=== PATIENT | female | born 1990 | race Caucasian/White ===

== ENCOUNTER 2018-06-23 21:33 | Emergency (ER) | payer OTHER ==
--- NOTE | 2018-06-23 21:58 | EDPHY ---
H & P Stated Complaint: chest tighness and back pain since 1830 worse w/movement cough x 3 weeks Time Seen by Provider: 06/23/18 22:04 HPI/ROS: HPI CHIEF COMPLAINT: Chest and back pain worse with movement. HISTORY OF PRESENT ILLNESS: Patient is a 28-year-old female, she arrives to the emergency room with 3-4 hours of chest pain and back pain. She describes an achy sensation is predominantly the right side of her chest and back. It is worse when she moves. Especially when she brings her arms into her chest she complains of worsening pain. Also worse when she takes deep breath in. She denies sharp pain, denies abdominal pain, denies nausea vomiting, denies neck or jaw pain, she has never had this before. She was standing and making dinner at home when this happened. She does additionally reports that she has been sick with a cold over the past few weeks with cough. Of note the patient is 65% O2 sat at triage was made in error. Past Medical History: Denies significant medical history except for anxiety Past Surgical History: Social History: Denies drugs alcohol tobacco. Family History: Noncontributory ROS REVIEW OF SYSTEMS: 10 Systems were reviewed and negative with the exception of the elements mentioned in the history of present illness. Exam Constitutional triage nursing summary reviewed, vital signs reviewed, awake/ alert. Eyes normal conjunctivae and sclera, EOMI, PERRLA. HENT normal inspection, atraumatic, moist mucus membranes, no epistaxis, neck supple/ no meningismus, no raccoon eyes. Respiratory clear to auscultation bilaterally, normal breath sounds, no respiratory distress, no wheezing. Cardiovascular chest wall: Mild tender palpation right anterior chest wall, rate normal, regular rhythm, no murmur, no edema, distal pulses normal. Gastrointestinal soft, non-tender, no rebound, no guarding, normal bowel sounds, no distension, no pulsatile mass. Genitourinary no CVA tenderness. Musculoskeletal no midline vertebral tenderness, full range of motion, no calf swelling, no tenderness of extremities, no meningismus, good pulses, neurovascularly intact. Skin pink, warm, & dry, no rash, skin atraumatic. Neurologic awake, alert and oriented x 3, AAOx3, moves all 4 extremities equally, motor intact, sensory intact, CN II-XII intact, normal cerebellar, normal vision, normal speech. Psychiatric normal mood/affect. Heme/Lymph/Immune no lymphadenopathy. Differential Diagnosis: Differential diagnosis includes but is not limited to: ACS, atypical chest pain, pneumothorax, pneumonia, pulmonary embolism, aortic dissection, congestive heart failure, tumor, musculoskeletal pain, esophageal pain, GERD, peptic ulcer disease, pancreatitis Medical Decision Making: Plan for this patient IV establishment, EKG, chest x- ray, basic labs, D-dimer gentle fluids, re-evaluate. Re-evaluation: EKG interpretation by me on record in [facility] system. Impression time of EKG 2216, sinus rhythm rate of 58 no signs of acute ischemia. No ST elevation. Point care troponin 0.07. Patient's initial troponin came back slightly high but not positive. She had a repeat troponin that is 0.00 Additionally she had a repeat EKG time 2:00 a.m. Sinus rhythm rate of 85, without signs of acute ischemia. Patient re-evaluated this time 2:24 a.m. Resting comfortably without any chest pain. States she feels much better after IV Toradol. She had 2 troponins over 4 hr. Initial troponin was 0.07 the repeat troponin was 0.00 Patient had a repeat EKG time 2:00 a.m. Sinus rhythm rate of 85 no signs of acute ischemia. I believe her chest pain is most likely musculoskeletal given the great improvement with Toradol and negative D-dimer 2-troponins 2 nonischemic EKGs. I do feel comfortable allowing her to go home. I do recommend alternating Tylenol Motrin for the next 72 hr. Additionally return precautions discussed with her and her mom at bedside. They understand return emergency room she develops worsening chest pain, shortness of breath, not doing well Source: Patient - Personal History LMP (Females 10-55): IUD In Place Current Tetanus/Diphtheria Vaccine: Yes Current Tetanus Diphtheria and Acellular Pertussis (TDAP): Yes - Medical/Surgical History Hx Asthma: No Hx Chronic Respiratory Disease: No Hx Diabetes: No Hx Cardiac Disease: No Hx Renal Disease: No Hx Cirrhosis: No Hx Alcoholism: No Hx HIV/AIDS: No Hx Splenectomy or Spleen Trauma: No Other PMH: , pre-eclampsia, anxiety - Social History Smoking Status: Never smoked Constitutional: Initial Vital Signs Temperature (C) 37.1 C 06/23/18 21:36 Heart Rate 66 06/23/18 21:36 Respiratory Rate 18 06/23/18 21:36 Blood Pressure 148/98 H 06/23/18 21:36 O2 Sat (%) 95 06/23/18 21:36 O2 Delivery Mode Room Air Allergies/Adverse Reactions: No Known Allergies Allergy (Unverified 06/23/18 22:12) Medical Decision Making - Data Points Laboratory Results: Laboratory Results 06/23/18 22:18 06/23/18 22:18 Medications Given: Discontinued Medications Sodium Chloride (Ns) 1,000 mls @ 0 mls/hr IV EDNOW ONE; Wide Open PRN Reason: Protocol Stop: 06/23/18 22:04 Last Admin: 06/23/18 22:19 Dose: 1,000 mls Sodium Chloride (Ns) 1,000 mls @ 0 mls/hr IV ONCE ONE PRN Reason: Wide Open Stop: 06/23/18 23:58 Last Admin: 06/24/18 00:06 Dose: 1,000 mls Ketorolac Tromethamine (Toradol) 15 mg IVP EDNOW ONE Stop: 06/23/18 23:58 Last Admin: 06/24/18 00:06 Dose: 15 mg Point of Care Test Results: Chemistry 06/24/18 06/23/18 01:54 22:20 POC Troponin I 0.00 ng/mL ng/mL 0.07 ng/mL ng/mL (0.00-0.08) (0.00-0.08) Departure - Departure Disposition: Home, Routine, Self-Care Clinical Impression: Chest wall pain Condition: Good Instructions: Thoracic Pain (ED), Chest Wall Pain (ED) Additional Instructions: 1. Return to the emergency room if develops worsening symptoms 2. Take anti-inflammatory pain medicine Tylenol Motrin over the next 72 hr 3. Return to the ER for worse 4. Follow up with Cardiology on outpatient basis. Referrals: KRISTIE OSCAR [Other] - As per Instructions Chris Jensen MD [Medical Doctor] - As per Instructions
[2018-06-23] MEDS ORDERED: NS 1,000 ML IV ONE ×2 (22:03→23:57)
[2018-06-23 22:27] LABS: PLATELET COUNT 207 10^3/uL (150-400)
[2018-06-23 22:35] LABS: INR 1.03 (0.83-1.16); PROTIME(PATIENT) 13.1 SEC (12.0-15.0)
[2018-06-23] MEDS ORDERED: KETOROLAC 15 MG/1 ML SDV IVP ONE (23:57)
[2018-06-24 02:35] VITALS: BP 137/80
--- NOTE | 2018-06-24 08:03 | CPEKG ---
Test Reason : OPEN Blood Pressure : / mmHG Vent. Rate : 058 BPM Atrial Rate : 056 BPM P-R Int : 136 ms QRS Dur : 089 ms QT Int : 402 ms P-R-T Axes : 046 -04 045 degrees QTc Int : 395 ms Sinus rhythm Confirmed by Sidney King ([id number]) on 06/24/2018 8:02:55 AM Referred By: Sidney King Confirmed By:Sidney King
--- NOTE | 2018-06-24 08:03 | CPEKG ---
Test Reason : OPEN Blood Pressure : / mmHG Vent. Rate : 085 BPM Atrial Rate : 084 BPM P-R Int : 148 ms QRS Dur : 089 ms QT Int : 394 ms P-R-T Axes : 053 -21 054 degrees QTc Int : 469 ms Sinus rhythm Borderline left axis deviation Confirmed by Sidney King ([id number]) on 06/24/2018 8:02:53 AM Referred By: Sidney King Confirmed By:Sidney King
== END 2018-06-24 02:32 | disposition home or self-care (01) ==
DX: R07.89 Other chest pain (principal)
CPT/HCPCS: 84484-ER; 96374; J1885